=== PATIENT | female | born 2000 | race Caucasian/White ===

== ENCOUNTER 2023-10-12 00:03 | Emergency (ER) | payer OTHER ==
[~2023-10-12] VITALS: Ht 157.5 cm; Wt 61.2 kg
[2023-10-12 00:03] VITALS: BP 146/81; PULSE 110; RESP 18; TEMP 98.4; O2SAT 98
[2023-10-12] MEDS: IBUPROFEN 600 MG TAB PO ONE (01:12)
[2023-10-12 01:31] VITALS: BP 130/72; PULSE 97; RESP 18; TEMP 98; O2SAT 99
== END 2023-10-12 01:32 | disposition home or self-care (01) ==
LOC: MED 00:03
DX: S43.401A Unspecified sprain of right shoulder joint, initial encounter (principal); Y04.8XXA Assault by other bodily force, initial encounter; Y93.89 Activity, other specified; Y92.89 Other specified places as the place of occurrence of the external cause; Y99.8 Other external cause status
CPT/HCPCS: 73030; 99283